=== PATIENT | female | born 1965 | race Caucasian/White ===

== ENCOUNTER 2017-07-01 10:50 | Day surgery (SDC) | payer BC ==
[2017-07-01 11:24] LABS: Bilirubin Negative (Negative); Blood, Urine Negative (Negative); Glucose, Urine (Dipstick) Negative (Negative); Ketone, Urine Negative (Negative); Nitrite Negative (Negative); Protein, Urine (Dipstick) Negative (Neg-Trace); Urobilinogen 0.2 mg/dL (0.2-1.0)
[2017-07-01 11:43] LABS: #Basophils 0.1 thou/uL (0.0-0.2); #Eosinphils 0.2 thou/uL (0.0-0.7); #Monocytes 0.4 thou/uL (0.11-0.59); #Neutrophils 3.9 thou/uL (1.40-6.50); %Eosinophils 3.6 % (0.0-10.0); %Lymphocytes 30.3 % (21.0-51.0); %Monocytes 5.6 % (0.0-10.0); Hematocrit 42.7 % (36.0-47.0); Mean Platelet Volume 9.1 fL (7.4-10.4); Red Blood Cell (RBC) Count 4.45 mill/uL (4.20-5.40); White Blood Cell (WBC) Count 6.5 thou/uL (4.8-10.8)
[2017-07-01 12:10] LABS: ALT (SGPT) 12 U/L (8-55); AST (SGOT) 14 U/L (5-34); Alkaline Phosphatase 83 U/L (40-150); Anion Gap 13 mmol/L (10-20); BUN (Urea Nitrogen) 13 mg/dL (9.8-20.1); Bilirubin, Total 0.3 mg/dL (0.2-1.2); Calc. Creatinine Clearance 0 mL/min (70-130); Calcium 9.5 mg/dL (7.8-10.44); Carbon Dioxide 26 mmol/L (22-29); Chloride 106 mmol/L (98-107); Estimated GFR-MDRD 78; Globulin 3.2 g/dL (2.4-3.5); Lipase 37 U/L (8-78); Protein, Total 7.3 g/dL (6.0-8.3)
[2017-07-01] MEDS ORDERED: Ibuprofen 800 MG TAB ONE (13:04)
[2017-07-01] MEDS ORDERED: traMADol HCl 50 MG TAB ONE (13:04)
--- NOTE | 2017-07-01 13:15 | CT ---
ABDOMEN CT WITHOUT CONTRAST: PELVIS CT WITHOUT CONTRAST: HISTORY: Periumbilical abdominal pain. Possible hernia. Symptoms x3 days. COMPARISON: None. TECHNIQUE: An abdomen and pelvis CT is performed without IV or oral contrast utilizing a renal stone protocol. Coronal reformatted images are submitted for interpretation. FINDINGS: ABDOMEN: Dependent atelectatic changes. Heart size is normal. No significant pericardial fluid. Descending thoracic aorta and abdominal aorta have a normal caliber. No periaortic fat stranding. The gallbladder is surgically absent. Limited evaluation of the solid organs due to lack of IV contrast. Grossly, the liver, spleen, panc reas, and adrenal glands have appropriate attenuation. No gastrohepatic, retrocrural, or periportal lymphadenopathy. No mesenteric mass, lymphadenopathy, free air, or free fluid. There is a ventral abdominal wall her antonieta containing a trace amount of mesenteric fat. Minimal induration of the fat. No bowel herniatio n. Bilaterally, no hydronephrosis or nephrolithiasis. No fat stranding. The bilateral ureters have a normal caliber. No hydroureter, periureteral fat stranding, or ureterolithiasis. Limited evaluation of the alimentary canal due to lack of oral contrast. No evidence of bowel obstr uction. The ileocecal junction is normal. Normal caliber appendix. Scattered fecal material in a nondistended, nondilated colon. Occasional diverticulosis without evidence of diverticulitis. PELVIS: The urinary bladder is unremarkable. No pelvic mass, lymphadenopathy, free air, or free fl uid. Surgically absent uterus. There are no osteoblastic or osteolytic lesions. IMPRESSION: 1. No evidence of nephrolithiasis or obstructive uropathy. 2. Normal caliber appendix. 3. Very small umbilical hernia containing mesenteric fat with minimal induration of the fat. No ev idence of bowel herniation. POS: [facility]
[2017-07-01] MEDS ORDERED: Fentanyl 100 MCG/2 ML VIAL ONE ×3 (15:03→17:05)
[2017-07-01] MEDS ORDERED: Bupivacaine HCl 0.5%/Epinephrine 1:200,000/PF 30 ml Vial ONE (15:12)
[2017-07-01] MEDS ORDERED: Ondansetron HCl/PF 4 MG/2 ML Vial ONE ×3 (15:39→17:05)
[2017-07-01] MEDS ORDERED: Levofloxacin 500 mg/D5W 100 ml Premix Bag ONE (15:42)
[2017-07-01] MEDS ORDERED: Propofol 200 MG/20 ML VIAL ONE (16:04)
[2017-07-01] MEDS ORDERED: Dexamethasone 20 MG/5 ML VIAL ONE (16:04)
[2017-07-01] MEDS ORDERED: Succinylcholine Chloride 20 MG/ML 10 ml SYRINGE FS ONE (16:04)
[2017-07-01] MEDS ORDERED: Lidocaine 1% PF 5 ML VIAL ONE (16:04)
--- NOTE | 2017-07-01 16:13 | HP ---
HISTORY OF PRESENT ILLNESS: Ms. Maegan Garcia is a 51-year-old female who presents with a supraumbili marsha hernia. This is very painful to her. She has been going to physicians, unable to be diagnosed. She presents to the emergency room today with acute pain. She was evaluated by Dr. Do. CAT scan revealed incarcerated fat in a supraumbilical midline ventral hernia. The patient insists on r epair. ALLERGIES: PENICILLIN, IODINE, MORPHINE and SULFA. SOCIAL HISTORY: Tobacco, one-half pack per day. Alcohol, socially. MEDICATIONS: None routinely. PAST SURGICAL HISTORY: Laparoscopic cholecystectomy, total abdominal hysterectomy and bilateral anthony pingo-oophorectomy. 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 REVIEW OF SYSTEMS: Ten-point noncontributory. She had a colonoscopy last year that was normal at [facility]. PHYSICAL EXAMINATION: VITAL SIGNS: Blood pressure 111/62, 79, 98.1 degrees. HEENT: Unremarkable. LUNGS: Clear to auscultation. CARDIAC: Regular rate and rhythm without murmur or gallop. ABDOMEN: Soft, tenderness in her supraumbilical area where there is a palpable mass about a 3 finge rbreadths above the umbilicus. ASSESSMENT AND PLAN: 1. Incarcerated ventral hernia, supraumbilical midline. Recommend open repair using possibly mesh. Risks of infection, bleeding, reoperation, , discussed. She consents. 2. Multiple allergies. She states she rony take Tylenol with codeine without problems. Tramadol c auses hallucinations. She is allergic to MORPHINE. 3. Tobacco abuse.
[2017-07-01] MEDS ORDERED: Promethazine HCl 25 MG/ML VIAL ONE (17:05)
--- NOTE | 2017-07-01 20:23 | OP ---
DATE OF OPERATION: 07/01/2017 PREOPERATIVE DIAGNOSIS: Incarcerated umbilical hernia. POSTOPERATIVE DIAGNOSIS: Incarcerated umbilical hernia with preperitoneal fat. SURGEON: Dr. Charles Chou. ANESTHESIA: General. Local 0.5% Marcaine with epinephrine, 30 mL mixed with 1% Xylocaine, 20 mL PROCEDURE PERFORMED: Umbilical hernia repair with PVP mesh 4 cm. PROCEDURE IN DETAIL: Patient was taken to the operating room where under general anesthesia, suprau mbilical incision made and carried down through the skin and subcutaneous tissue and a small umbilic al hernia defect noted. Just above that there was a smaller ventral hernia. These small bridges of fascia were taken down, this defect sharpened, herniated and incarcerated fat excised with the caut sharron. Hemostasis gained with the cautery. Preperitoneal space potentiated and PVP 4 cm mesh placed in the preperitoneal space and mesh approximated [id number] fashion with interrupted sutures of 0 PDS pop offs incorporating the mesh into the fascial approximation for fascial closure. Mesh was used to reinforce the fascial closure. Local anesthetic infiltrated into skin and subcutaneous tis nilay about the wound for postoperative pain control. Subcutaneous tissues approximated with 3-0 Ocean cryl, skin with subdermal 4-0 Monocryl and DermaGlue applied.
== END 2017-07-01 19:00 | disposition home or self-care (01) ==
LOC: ERS 10:50 → SDC/OP 15:11
PROVIDERS: ATTEND Specialist
PROC: 0WUF0JZ Supplement Abdominal Wall with Synthetic Substitute, Open Approach (ICD-10-PCS; principal; 2017-07-01)
DX: K42.0 Umbilical hernia with obstruction, without gangrene (principal); F17.210 Nicotine dependence, cigarettes, uncomplicated; Z88.0 Allergy status to penicillin; Z88.5 Allergy status to narcotic agent; Z88.2 Allergy status to sulfonamides; Z91.041 Radiographic dye allergy status; Z90.710 Acquired absence of both cervix and uterus; Z90.49 Acquired absence of other specified parts of digestive tract; Z90.722 Acquired absence of ovaries, bilateral
CPT/HCPCS: 36415; 74176; 80053; 81003; 81025; 83690; 85025; 93005; 96374; J0131; J0670; J1100; J1170; J1956; J2001; J2405; J2550; J2704; J3010

== ENCOUNTER 2017-11-10 14:49 | Outpatient (CLI) | payer OTHER | END 2017-11-10 14:50 | disposition home or self-care (01) | LOC: BICMAMMO 14:49 | PROVIDERS: ATTEND Family Medicine | DX: Z12.31 Encounter for screening mammogram for malignant neoplasm of breast (principal) | CPT/HCPCS: 77067 ==

== ENCOUNTER → 2018-03-09 | Day surgery (SDC) | payer OTHER ==
[2018-03-06 08:23] VITALS: BMI 28.1
== END ==
LOC: ENDO/OP 07:34
PROVIDERS: ATTEND Internal Medicine Gastroenterology
DX: K21.9 Gastro-esophageal reflux disease without esophagitis (principal); F17.200 Nicotine dependence, unspecified, uncomplicated; Z88.0 Allergy status to penicillin; Z88.2 Allergy status to sulfonamides; Z91.041 Radiographic dye allergy status; Z79.899 Other long term (current) drug therapy
CPT/HCPCS: 91010

== ENCOUNTER 2018-04-06 10:15 | Outpatient (CLI) | payer OTHER ==
--- NOTE | 2018-04-06 13:40 | RAD ---
ESOPHAGRAM: Date: 04/06/18 HISTORY: Dysphagia. FLUORO TIME: 1.6 minutes. FINDINGS: Air contrast and single column barium evaluation of the esophagus shows diminished primary and second ellen peristalsis. There are prominent tertiary nonpropulsive contractions of the esophagus, most prono unced at the lower one-third. Minimal hiatal hernia. Moderate amount of gastroesophageal reflux. A 12 mm barium tablet traversed the esophagus without holdup. IMPRESSION: 1. Presbyesophagus with prominent tertiary contractions. No evidence of obstruction. 2. Very small hiatal hernia. Moderate gastroesophageal reflux. POS: [facility]
== END 2018-04-06 10:16 | disposition home or self-care (01) ==
LOC: RAD 10:15
PROVIDERS: ATTEND Internal Medicine Gastroenterology
DX: R13.10 Dysphagia, unspecified (principal); K22.8 Other specified diseases of esophagus; K44.9 Diaphragmatic hernia without obstruction or gangrene; K21.9 Gastro-esophageal reflux disease without esophagitis
CPT/HCPCS: 74220

== ENCOUNTER 2019-03-08 09:21 | Observation (INO) | payer OTHER, SELFPAY ==
[2019-03-08 09:49] LABS: #Eosinphils 0.4 thou/uL (0.0-0.7); #Monocytes 0.6 thou/uL (0.11-0.59); #Neutrophils 5.9 thou/uL (1.40-6.50); %Basophils 0.3 % (0.0-1.0); %Eosinophils 3.9 % (0.0-10.0); %Lymphocytes 22.7 % (21.0-51.0); %Monocytes 6.7 % (0.0-10.0); %Neutrophils 66.4 % (42.0-75.0); Hemoglobin 13.8 g/dL (12.0-16.0); Mean Corpuscular HGB CONC 32.5 g/dL (32.0-36.0); Mean Corpuscular Hemoglobin 31.3 pg (27.0-31.0); Mean Corpuscular Volume 96.2 fL (78.0-98.0); Mean Platelet Volume 8.6 fL (7.4-10.4); Platelet Count 200 thou/uL (130-400); RBC Distribution Width 11.7 % (11.5-14.5); White Blood Cell (WBC) Count 8.9 thou/uL (4.8-10.8)
[2019-03-08] MEDS ORDERED: Aspirin Chewable 81 MG TAB ONE (10:50)
[2019-03-08 10:51] LABS: ALT (SGPT) 20 U/L (8-55); AST (SGOT) 19 U/L (5-34); Albumin 4.3 g/dL (3.5-5.0); Alkaline Phosphatase 102 U/L (40-150); Anion Gap 12 mmol/L (10-20); BUN (Urea Nitrogen) 10 mg/dL (9.8-20.1); Bilirubin, Total 0.4 mg/dL (0.2-1.2); CK (CPK) 76 U/L (29-168); Calc. Creatinine Clearance 0 mL/min (70-130); Calcium 9.4 mg/dL (7.8-10.44); Carbon Dioxide 30 mmol/L (22-29); Chloride 104 mmol/L (98-107); Estimated GFR-MDRD 85; Globulin 2.9 g/dL (2.4-3.5); Glucose 89 mg/dL (70-105); Potassium 3.8 mmol/L (3.5-5.1); Protein, Total 7.2 g/dL (6.0-8.3); Sodium 142 mmol/L (136-145)
[2019-03-08] MEDS ORDERED: Nitroglycerin 2% Ointment 1 INCH/1 GM Packet ONE (11:39)
--- NOTE | 2019-03-08 11:43 | RAD ---
PORTABLE CHEST: 03/08/2019 PROVIDED CLINICAL HISTORY: Chest pain. COMPARISON: 08/24/2012 FINDINGS: The cardiac and mediastinal silhouette is within normal limits. The lungs appear clear. No pleural fluid or pneumothorax apparent. IMPRESSION: No evidence for an acute cardiopulmonary process. POS: [facility]
[2019-03-08] MEDS ORDERED: Acetaminophen 325 MG TAB ONE (12:24)
[2019-03-08 13:02] LABS: Troponin I Less than 0.010 ng/mL (< 0.028)
[2019-03-08] MEDS ORDERED: Acetaminophen 325 MG TAB PO PRN (13:21)
[2019-03-08 13:24] VITALS: BMI 28.5
--- NOTE | 2019-03-08 14:01 | RAD ---
CERVICAL SPINE 4 VIEWS: HISTORY: Neck and left arm and shoulder pain FINDINGS: Mild degenerative changes are present. No fracture, subluxation or bony destruction is identified.
[2019-03-08] MEDS: Nitroglycerin 0.4 MG TAB (25 Tab Bottle) PO PRN ×2 (14:33→14:44)
[2019-03-08] MEDS: Nitroglycerin 2% Ointment 1 INCH/1 GM Packet TOP SCH ×2 (16:26→21:07)
--- NOTE | 2019-03-08 18:52 | HP ---
PRIMARY CARE PHYSICIAN: Alvin Willoughby DO CHIEF COMPLAINT: Chest pain. HISTORY OF PRESENT ILLNESS: Ms. Garcia is a very pleasant 53-year-old female who has a history of hypercholesterolemia and gastroesophageal reflux disease. She was in her usual state of health until a couple of days ago when she started having pain on the left side of her shoulder and chest. She says it radiated to her back and initially, it was coming and going, usually lasting only about 5 minutes at a time, but now the pain has gone to be mostly constant. She says it feels like there is a brick sitting on her chest. She notes some shortness of breath with it as well, but no nausea, no vomiting. She did say she broke out into a sweat. She says she was driving when the pain started and was not doing anything very strenuous. She also has had a cough off and on as well. As a result of the pain, she came to the hospital for evaluation. She was given an aspirin and sublingual nitroglycerin and nitroglycerin paste, which is only partially relieved her symptoms. In fact, it really has not helped much. She is being placed in observation for further recommendations. She denies any palpitations. No PND. No orthopnea. She says she does not feel dizzy, but has felt weak and generally tired and says that her eyes have been "glossed over." The patient works with [employer], but says she does not have to do any type of lifting and has denied any heavy lifting recently. REVIEW OF SYSTEMS: CONSTITUTIONAL: There have been no fevers or chills. No night sweats. No weight loss. HEENT: No headache, but she has had some dizziness and visual changes such as her eyes seem glossed over, but she also has had some sore throat and nasal congestion. PULMONARY: No hemoptysis. She has had some cough, but no wheezing. CARDIOVASCULAR: As in the History of Present Illness. GASTROINTESTINAL: She denies any nausea or vomiting. She has had some left-sided abdominal pain. Her last bowel movement was yesterday. She says it was normal. There was no blood in the stool. No hematochezia or melena. GENITOURINARY: No urinary frequency, hematuria, or hesitancy. NEUROLOGIC: No focal weakness or numbness. No seizures. PSYCHIATRIC: She admits to being more depressed lately and feels more under stress. She says because her recently passed in October, and she also has a lot of stress at home. SKIN AND INTEGUMENT: There are no skin changes. No rash. PAST MEDICAL HISTORY: Significant for hypercholesterolemia, gastroesophageal reflux disease, and depression. PAST SURGICAL HISTORY: She has had a cholecystectomy, hysterectomy, bilateral salpingo-oophorectomy, and she has had a ventral hernia repair. ALLERGIES: TO MORPHINE, CODEINE, CONTRAST, SULFA, AND PENICILLIN. SOCIAL HISTORY: She is . She has 2 children. She currently smokes at least 5 to 6 cigarettes a day, and she has been a smoker for about 30 years. She says she does drink an occasional wine cooler. FAMILY HISTORY: Significant for her father had [place] and at age 51. He also had diabetes and had a blood clot in his brain. Brother and mother both had hypertension and diabetes. CURRENT MEDICATIONS: Include: 1. Trazodone 100 mg daily. 2. Lipitor 20 mg daily. 3. Prilosec 20 mg daily. 4. Venlafaxine 150 mg daily. PHYSICAL EXAMINATION: GENERAL: She is alert and oriented. She appears to be in no acute distress. She is well developed and well nourished. VITAL SIGNS: Blood pressure was 136/71, heart rate 76, respiratory rate is 18, and temperature is 98. HEENT: Pupils are equal, round, reactive to light. Extraocular muscles are intact. Her sclerae are anicteric. Tympanic membranes, she did have some mild redness in the left drum. On the right, the drum is pearly de la o, and there is some fluid behind the drum, but no bulging. NECK: There is no adenopathy. No bruits, but she did have some paraspinous tenderness on the left. LUNGS: Clear to auscultation. There is no wheezing. No rales. No rhonchi. CARDIOVASCULAR: She had normal S1 and S2. I did not appreciate S3 or S4. No murmurs, clicks, or rubs. ABDOMEN: Obese. It is soft and nondistended. Positive for bowel sounds. She did have some left upper quadrant tenderness, but there is no rebound, no guarding, and no organomegaly. EXTREMITIES: There is no clubbing or cyanosis. No edema. NEUROLOGIC: Her muscle strength is 5/5 in both upper and lower extremities. SKIN AND INTEGUMENT: There are no skin changes. No rash. LABORATORY RESULTS: Sodium 142, potassium 3.8, chloride is 104, CO2 is 30, BUN of 10, creatinine 0.72, and glucose is 89. D-dimer 0.37. White blood cell count 8.9, hemoglobin 13.8, hematocrit 42.3, and platelet count is 200. On her EKG, sinus rhythm, the rate is 80. There are no ST wave changes. On her chest x-ray, there is no evidence of any cardiomegaly, no infiltrates or effusions. Both EKG and chest x-ray are by my reading. ASSESSMENT AND PLAN: 1. This is a pleasant 53-year-old female who presents to the emergency room complaining of chest pain, which has been fairly constant over the last couple of days. It is a bit atypical and that it is reproducible. However, she does have risk factors for coronary artery disease. Therefore, she will be placed in observation, ruled out, and we will get an exercise Cardiolite as well as lipid panel to help assess her risk for acute coronary syndrome. 2. Dyslipidemia. We will continue Lipitor. 3. Tobacco abuse. We will provide brief counseling on the need of tobacco cessation. 4. Gastroesophageal reflux disease. We will continue her PPI. Job ID: [id number]
[2019-03-08] MEDS ORDERED: Atorvastatin Calcium 20 MG TAB PO SCH (21:00)
[2019-03-08] MEDS ORDERED: traZODone HCl 50 MG TAB PO SCH (21:00)
[2019-03-08] MEDS: traMADol HCl 50 MG TAB PO PRN (21:01)
[2019-03-09] MEDS: Nitroglycerin 2% Ointment 1 INCH/1 GM Packet TOP SCH ×2 (04:57→13:29)
[2019-03-09 05:26] LABS: #Eosinphils 0.4 thou/uL (0.0-0.7); #Lymphocytes 2.2 thou/uL (1.20-3.40); #Monocytes 0.6 thou/uL (0.11-0.59); #Neutrophils 4.4 thou/uL (1.40-6.50); %Basophils 0.4 % (0.0-1.0); %Eosinophils 5.9 % (0.0-10.0); %Lymphocytes 28.7 % (21.0-51.0); %Monocytes 7.6 % (0.0-10.0); %Neutrophils 57.4 % (42.0-75.0); Hemoglobin 11.9 g/dL (12.0-16.0); Mean Corpuscular HGB CONC 31.4 g/dL (32.0-36.0); Mean Corpuscular Hemoglobin 30.7 pg (27.0-31.0); Mean Corpuscular Volume 97.8 fL (78.0-98.0); Mean Platelet Volume 8.8 fL (7.4-10.4); Platelet Count 175 thou/uL (130-400); RBC Distribution Width 11.7 % (11.5-14.5); Red Blood Cell (RBC) Count 3.86 mill/uL (4.20-5.40); White Blood Cell (WBC) Count 7.6 thou/uL (4.8-10.8)
[2019-03-09 05:48] LABS: Anion Gap 10 mmol/L (10-20); BUN (Urea Nitrogen) 13 mg/dL (9.8-20.1); Calc. Creatinine Clearance 113 mL/min (70-130); Calcium 8.6 mg/dL (7.8-10.44); Carbon Dioxide 27 mmol/L (22-29); Cardiac Risk 3.9 (Less than 4.5); Chloride 106 mmol/L (98-107); Cholesterol 155 mg/dl (< 200 Desired); Estimated GFR-MDRD 81; Glucose 133 mg/dL (70-105); HDL Cholesterol 40 mg/dL (>60 Neg Risk); LDL Cholesterol, Calculated 92 mg/dL; Potassium 3.9 mmol/L (3.5-5.1); Sodium 139 mmol/L (136-145); Triglycerides 113 mg/dL (Less than 150)
[2019-03-09] MEDS: traMADol HCl 50 MG TAB PO PRN (08:11)
[2019-03-09] MEDS ORDERED: Venlafaxine HCl XR 150 MG CAP PO SCH (09:00)
[2019-03-09] MEDS ORDERED: Enoxaparin Sodium 40 MG/0.4 ML SYRINGE SC SCH (09:00)
[2019-03-09] MEDS ORDERED: Aspirin 325 mg Enteric Coated Tablet PO SCH (09:00)
--- NOTE | 2019-03-09 13:20 | NM ---
EXAM: CARDIAC SPECT HISTORY: Chest pain, dyslipidemia, smoker TECHNIQUE: A myocardial perfusion scan was performed using the single isotope 1 day protocol with jasper hnetium 99m sestamibi. [10 mCi] was injected intravenously for the rest exam followed by 30 mCi for the stress study. Exercise stress was monitored and interpreted by AMINA Estrada FINDINGS: Homogeneous tracer distribution is seen in the myocardial segments on stress and rest image s without fixed or reversible defects. Gated SPECT LVEF: 54% Wall motion exam: Normal IMPRESSION: Normal myocardial perfusion scan
[2019-03-09] MEDS ORDERED: Ketorolac Tromethamine 30 MG/ML VIAL IVP SCH (13:45)
[2019-03-09] MEDS ORDERED: Sodium Chloride 0.9% 500 ML IV SCH (13:45)
[2019-03-09] MEDS ORDERED: Metoclopramide HCl 10 MG/2 ML VIAL IVP SCH (13:45)
[2019-03-09] MEDS ORDERED: diphenhydrAMINE 50 MG/ML VIAL IVP SCH (13:45)
[2019-03-09 15:48] VITALS: BP 102/55; TEMP 98.1
--- NOTE | 2019-03-09 23:23 | DIS ---
DATE OF ADMISSION: 03/08/2019 DATE OF DISCHARGE: 03/09/2019 PRIMARY CARE PHYSICIAN: Alvin Willoughby, DO PROCEDURES: The patient had a cervical spine x-ray which showed mild degenerative changes. No fracture, subluxation, or bony destruction is identified. Chest x-ray, no acute cardiopulmonary process. The patient had a nuclear stress test, wall motion exam is normal, normal myocardial perfusion scan, EF is 54%. HOSPITAL COURSE: Ms. Garcia is a 53-year-old female with a history of hypercholesteremia and gastro reflux. She was in her usual state of health until a couple days ago when she started having pain to her left side of her chest, reports that it radiated to her back intermittent, reports is a pressure, reports some shortness of breath with it, reports that she initially had it last Friday was driving, when home took a nap, felt better, but it has been intermittent since that time. She denied nausea, vomiting. Did say that she broken into a sweat. She eventually came to the emergency room when the pain did not resolve. She was given an aspirin and sublingual nitroglycerin paste, which only partially relieved her symptoms. She reports that it really did not help that much. She was placed on the observation unit for further management. She denied any palpitations, any orthopnea. Troponins x3 were negative. Stress test was also negative with an EF as stated above. She reports that she feels a little bit better today other than a headache which was relieved with a headache cocktail, some normal saline, Benadryl, Reglan, and a little Toradol. Labs remained unremarkable. The patient reports that she feels a little bit better and was subsequently discharged home. She was instructed to follow up with her primary care doctor, Dr. Willoughby, within 1 week. ALLERGIES: CODEINE, CONTRAST, MORPHINE, PENICILLIN, AND SULFA. HOME MEDICATIONS: Which were restarted; 1. Atorvastatin 20 mg p.o. at bedtime. 2. Prilosec 20 mg p.o. daily. 3. Trazodone 100 mg p.o. at bedtime. 4. Effexor ER 150 mg p.o. daily. DISPO CONDITION: Stable. DISPOSITION: Home. FOLLOWUP INSTRUCTIONS: Follow up with Dr. Willoughby in the next week. Job ID: [id number]
--- NOTE | 2019-03-13 17:04 | EKG ---
Test Reason : Blood Pressure : / mmHG Vent. Rate : 081 BPM Atrial Rate : 081 BPM P-R Int : 142 ms QRS Dur : 080 ms QT Int : 388 ms P-R-T Axes : 071 056 057 degrees QTc Int : 450 ms Normal sinus rhythm Normal ECG Confirmed by LISA STEPHENSON DO ([id number]), editor house organ PABLITO VILLEGAS ([id number]) on 03/13/2019 5:04:34 PM Referred By: Confirmed By:LISA STEPHENSON DO
== END 2019-03-09 17:17 | disposition home or self-care (01) ==
LOC: ERS 09:21 → 2SW 11:37
PROVIDERS: ADMIT Internal Medicine; ATTEND Internal Medicine
DX: R07.89 Other chest pain (principal); M25.512 Pain in left shoulder; R06.02 Shortness of breath; E78.5 Hyperlipidemia, unspecified; E78.00 Pure hypercholesterolemia, unspecified; K21.9 Gastro-esophageal reflux disease without esophagitis; F17.210 Nicotine dependence, cigarettes, uncomplicated; F32.9 Major depressive disorder, single episode, unspecified; Z88.0 Allergy status to penicillin; Z88.2 Allergy status to sulfonamides; Z88.5 Allergy status to narcotic agent; Z91.041 Radiographic dye allergy status
CPT/HCPCS: 36415; 71045; 72040; 78452; 80048; 80053; 80061; 82550; 84484; 85025; 85379; 90471; 90732; 93005; 93017; 94760; 96372; 96374; 96375; A9500; G0009; G0378; J1200; J1650; J1885; J2765

== ENCOUNTER 2019-05-27 13:45 | Outpatient (CLI) | payer OTHER ==
--- NOTE | 2019-05-28 20:57 | ULT ---
LOWER EXTREMITY ARTERIAL EVALUATION 05/27/19 Examination of the lower extremities using Doppler waveforms analysis and segmental limb pressures wa s performed. Examination of the right leg reveals normal ankle-arm index of 1.2 with satisfactory waveforms at all levels. Toe-brachial index is normal. On the left lower extremity, ankle-arm index is normal at 1.08 with relatively well preserved signals at all levels except for the common femoral artery. Toe-brachial index is normal. This study would be considered a normal resting arterial study of the lower extremities and would not be consistent with any significant claudication.
== END 2019-05-27 13:46 | disposition home or self-care (01) ==
LOC: ULT 13:45
PROVIDERS: ATTEND Family Medicine
DX: I83.93 Asymptomatic varicose veins of bilateral lower extremities (principal); R09.89 Other specified symptoms and signs involving the circulatory and respiratory systems
CPT/HCPCS: 93922

== ENCOUNTER 2019-05-27 14:56 | Outpatient (CLI) | payer OTHER ==
--- NOTE | 2019-05-27 15:48 | MMO ---
Bilateral MAMMO Bilat Screen [facility]. CLINICAL HISTORY: Patient is 53 years old and is seen for screening. The patient has no family history of breast cancer. The patient has no personal history of cancer. VIEWS: The views performed were: bilateral craniocaudal with tomosynthesis and bilateral mediolateral oblique with tomosynthesis. FILMS COMPARED: The present examination has been compared to prior imaging studies performed at [facility] on 11/10/2017, and at [facility] on 05/16/2014. MAMMOGRAM FINDINGS: There are scattered fibroglandular densities. There are benign appearing calcifications seen in both breasts. There are no suspicious masses, suspicious calcifications, or new areas of architectural distortion. IMPRESSION: THERE IS NO MAMMOGRAPHIC EVIDENCE OF MALIGNANCY. A ROUTINE FOLLOW-UP MAMMOGRAM IN 1 YEAR IS RECOMMENDED. THE RESULTS OF THIS EXAM WERE SENT TO THE PATIENT. ACR BI-RADS Category 2 - Benign finding MAMMOGRAPHY NOTE: 1. A negative mammogram report should not delay a biopsy if a dominant of clinically suspicious mass is present. 2. Approximately 10% to 15% of breast cancers are not detected by mammography. 3. Adenosis and dense breasts may obscure an underlying neoplasm. Reported by: ULISES COYNE MD Electonically Signed: [id number]
== END 2019-05-27 14:57 | disposition home or self-care (01) ==
LOC: BICMAMMO 14:56
PROVIDERS: ATTEND Family Medicine
DX: Z12.31 Encounter for screening mammogram for malignant neoplasm of breast (principal)
CPT/HCPCS: 77063; 77067

== ENCOUNTER 2020-01-15 20:19 | Emergency (ER) | payer OTHER, SELFPAY ==
[2020-01-15] MEDS ORDERED: Ketorolac Tromethamine 30 MG/ML VIAL ONE (20:37)
== END 2020-01-15 21:00 | disposition home or self-care (01) ==
LOC: ERS 20:19
DX: S16.1XXA Strain of muscle, fascia and tendon at neck level, initial encounter (principal); S20.211A Contusion of right front wall of thorax, initial encounter; K21.9 Gastro-esophageal reflux disease without esophagitis; E78.5 Hyperlipidemia, unspecified; E78.00 Pure hypercholesterolemia, unspecified; F41.9 Anxiety disorder, unspecified; F32.9 Major depressive disorder, single episode, unspecified; F17.210 Nicotine dependence, cigarettes, uncomplicated; Z79.899 Other long term (current) drug therapy; V89.2XXA Person injured in unspecified motor-vehicle accident, traffic, initial encounter
CPT/HCPCS: 96372; 99283; J1885

== ENCOUNTER 2020-11-29 14:31 | Outpatient (CLI) | payer OTHER | END 2020-11-29 14:32 | disposition home or self-care (01) | LOC: BICMAMMO 14:31 | PROVIDERS: ATTEND Family Medicine | DX: Z12.31 Encounter for screening mammogram for malignant neoplasm of breast (principal) | CPT/HCPCS: 77063; 77067 ==

== ENCOUNTER 2021-02-26 11:35 | Emergency (ER) | payer OTHER ==
[~2021-02-26 11:35] MED LIST: Iopamidol-370 76% 500 ML 1 ML ONE
[2021-02-26 12:24] LABS: #Basophils 0.1 thou/uL (0.0-0.2); #Eosinphils 0.3 thou/uL (0.0-0.7); #Lymphocytes 2.3 thou/uL (1.20-3.40); #Monocytes 0.5 thou/uL (0.11-0.59); #Neutrophils 5.5 thou/uL (1.40-6.50); %Basophils 0.6 % (0.0-1.0); %Eosinophils 2.9 % (0.0-10.0); %Lymphocytes 26.9 % (21.0-51.0); %Monocytes 5.8 % (0.0-10.0); %Neutrophils 63.7 % (42.0-75.0); Hemoglobin 13.8 g/dL (12.0-16.0); Mean Corpuscular HGB CONC 32.7 g/dL (32.0-36.0); Mean Corpuscular Hemoglobin 31.1 pg (27.0-31.0); Mean Corpuscular Volume 95.2 fL (78.0-98.0); Mean Platelet Volume 8.6 fL (7.4-10.4); Platelet Count 196 thou/uL (130-400); RBC Distribution Width 12.4 % (11.5-14.5); Red Blood Cell (RBC) Count 4.42 mill/uL (4.20-5.40); White Blood Cell (WBC) Count 8.6 thou/uL (4.8-10.8)
[2021-02-26 12:41] LABS: ALT (SGPT) 12 U/L (8-55); AST (SGOT) 11 U/L (5-34); Albumin 3.8 g/dL (3.5-5.0); Alkaline Phosphatase 95 U/L (40-110); Anion Gap 11 mmol/L (10-20); BUN (Urea Nitrogen) 10 mg/dL (9.8-20.1); Bilirubin, Total 0.4 mg/dL (0.2-1.2); Calc. Creatinine Clearance 0 mL/min (70-130); Calcium 9.3 mg/dL (7.8-10.44); Carbon Dioxide 27 mmol/L (22-29); Chloride 106 mmol/L (98-107); Globulin 2.5 g/dL (2.4-3.5); Glucose 91 mg/dL (70-105); Lipase 46 U/L (8-78); Potassium 4.2 mmol/L (3.5-5.1); Protein, Total 6.3 g/dL (6.0-8.3); Sodium 140 mmol/L (136-145)
[2021-02-26] MEDS ORDERED: diphenhydrAMINE 50 MG/ML VIAL ONE (13:11)
[2021-02-26] MEDS ORDERED: Ketorolac Tromethamine 30 MG/ML VIAL ONE (13:11)
[2021-02-26] MEDS ORDERED: methylPREDNISolone Sod Succ/PF 125 MG/2 ML VIAL ONE (13:11)
[2021-02-26] MEDS ORDERED: Famotidine/PF 20 mg/2ml Vial ONE (13:11)
[2021-02-26 15:33] LABS: Troponin I Less than 0.010 ng/mL (< 0.028)
[2021-02-26 15:54] LABS: SARS-CoV-2 NAA Rapid Test Not Detected (NotDetected)
== END 2021-02-26 16:30 | disposition home or self-care (01) ==
LOC: ERS 11:35
DX: R07.89 Other chest pain (principal); Z20.822 Contact with and (suspected) exposure to COVID-19; Z79.899 Other long term (current) drug therapy; K21.9 Gastro-esophageal reflux disease without esophagitis; E78.5 Hyperlipidemia, unspecified; E78.00 Pure hypercholesterolemia, unspecified; F17.210 Nicotine dependence, cigarettes, uncomplicated
CPT/HCPCS: 36415; 71045; 71275; 80053; 83690; 84484; 85025; 85379; 93005; 94760; 96374; 96375; J1200; J1885; J2930; Q9967; S0028; U0002; U0005

== ENCOUNTER 2021-10-02 22:01 | Emergency (ER) | payer BC, OTHER ==
[2021-10-03] MEDS ORDERED: Dexamethasone 4 MG TAB ONE ×2 (00:17)
[2021-10-03] MEDS ORDERED: Acetaminophen 500 MG TAB ONE (00:17)
[2021-10-03] MEDS ORDERED: Albuterol 200 PUFF (6.7GM INHALER) ONE (01:27)
[2021-10-03 03:30] LABS: #Eosinphils 0.1 thou/uL (0.0-0.7); #Lymphocytes 0.6 thou/uL (1.20-3.40); #Monocytes 0.3 thou/uL (0.11-0.59); %Basophils 0.1 % (0.0-1.0); %Lymphocytes 7.8 % (21.0-51.0); %Monocytes 3.3 % (0.0-10.0); %Neutrophils 87.9 % (42.0-75.0); Hemoglobin 13.2 g/dL (12.0-16.0); Mean Corpuscular Hemoglobin 32.3 pg (27.0-31.0); Mean Platelet Volume 7.5 fL (7.4-10.4); Platelet Count 195 thou/uL (130-400); RBC Distribution Width 11.6 % (11.5-14.5)
[2021-10-03 17:03] LABS: SARS-CoV-2 PCR by NAA DETECTED (NotDetected)
== END 2021-10-03 04:06 | disposition home or self-care (01) ==
LOC: ERS 22:01
DX: U07.1 COVID-19 (principal); K21.9 Gastro-esophageal reflux disease without esophagitis; E78.00 Pure hypercholesterolemia, unspecified; E78.5 Hyperlipidemia, unspecified; F17.210 Nicotine dependence, cigarettes, uncomplicated; Z79.899 Other long term (current) drug therapy
CPT/HCPCS: 36415; 71045; 84484; 85025; 93005; J8540; U0003; U0005

== ENCOUNTER 2021-10-22 11:27 | Emergency (ER) | payer BC ==
[2021-10-22 12:51] LABS: #Basophils 0.1 thou/uL (0.0-0.2); #Eosinphils 0.1 thou/uL (0.0-0.7); #Lymphocytes 0.3 thou/uL (1.20-3.40); #Monocytes 0.5 thou/uL (0.11-0.59); #Neutrophils 6.4 thou/uL (1.40-6.50); %Basophils 1.2 % (0.0-1.0); %Eosinophils 1.3 % (0.0-10.0); %Lymphocytes 3.4 % (21.0-51.0); %Monocytes 6.9 % (0.0-10.0); %Neutrophils 87.2 % (42.0-75.0); Hemoglobin 13.7 g/dL (12.0-16.0); Mean Corpuscular HGB CONC 32.9 g/dL (32.0-36.0); Mean Corpuscular Hemoglobin 31.2 pg (27.0-31.0); Mean Corpuscular Volume 94.7 fL (78.0-98.0); Mean Platelet Volume 7.8 fL (7.4-10.4); Platelet Count 211 thou/uL (130-400); White Blood Cell (WBC) Count 7.3 thou/uL (4.8-10.8)
[2021-10-22 13:16] LABS: ALT (SGPT) 28 U/L (8-55); AST (SGOT) 27 U/L (5-34); Albumin 4.1 g/dL (3.5-5.0); Alkaline Phosphatase 105 U/L (40-110); Anion Gap 16 mmol/L (10-20); BUN (Urea Nitrogen) 14 mg/dL (9.8-20.1); Bilirubin, Total 0.4 mg/dL (0.2-1.2); Calc. Creatinine Clearance 0 mL/min (70-130); Calcium 8.6 mg/dL (7.8-10.44); Carbon Dioxide 22 mmol/L (22-29); Chloride 105 mmol/L (98-107); Globulin 3.3 g/dL (2.4-3.5); Glucose 121 mg/dL (70-105); Lipase 67 U/L (8-78); Potassium 3.7 mmol/L (3.5-5.1); Protein, Total 7.4 g/dL (6.0-8.3); Sodium 139 mmol/L (136-145)
[2021-10-22] MEDS ORDERED: diphenhydrAMINE 25 MG CAP ONE (13:52)
[2021-10-22] MEDS ORDERED: Ondansetron PF 4 MG/2 ML Vial ONE (13:52)
[2021-10-22] MEDS ORDERED: methylPREDNISolone Sod Succ/PF 125 MG/2 ML VIAL ONE (13:52)
[2021-10-22] MEDS ORDERED: Famotidine/PF 20 mg/2ml Vial ONE (13:52)
[2021-10-22] MEDS ORDERED: diphenhydrAMINE 50 MG/ML VIAL ONE (13:53)
[2021-10-22] MEDS ORDERED: Morphine 4 MG/ML VIAL ONE (14:18)
[2021-10-22 14:27] LABS: CRP (Inflammatory) 2.35 mg/dL (= or < 0.5)
== END 2021-10-22 17:50 | disposition home or self-care (01) ==
LOC: ERS 11:27
DX: K59.00 Constipation, unspecified (principal); K21.9 Gastro-esophageal reflux disease without esophagitis; F17.210 Nicotine dependence, cigarettes, uncomplicated; E78.5 Hyperlipidemia, unspecified
CPT/HCPCS: 36415; 71045; 74177; 80053; 82550; 83605; 83690; 84484; 85025; 86140; 93005; 94760; 96374; 96375; J1200; J2270; J2405; J2930; S0028

== ENCOUNTER 2021-10-23 08:12 | Emergency (ER) | payer BC ==
[2021-10-23 09:28] LABS: #Lymphocytes 0.8 thou/uL (1.20-3.40); #Monocytes 0.8 thou/uL (0.11-0.59); %Eosinophils 0.1 % (0.0-10.0); %Lymphocytes 7.7 % (21.0-51.0); %Monocytes 7.7 % (0.0-10.0); %Neutrophils 84.5 % (42.0-75.0); Hemoglobin 12.9 g/dL (12.0-16.0); Mean Corpuscular HGB CONC 31.5 g/dL (32.0-36.0); Mean Corpuscular Hemoglobin 30.3 pg (27.0-31.0); Mean Corpuscular Volume 96.2 fL (78.0-98.0); Mean Platelet Volume 7.8 fL (7.4-10.4); Platelet Count 229 thou/uL (130-400); RBC Distribution Width 12.1 % (11.5-14.5); Red Blood Cell (RBC) Count 4.27 mill/uL (4.20-5.40); White Blood Cell (WBC) Count 10.6 thou/uL (4.8-10.8)
[2021-10-23 09:48] LABS: ALT (SGPT) 39 U/L (8-55); AST (SGOT) 29 U/L (5-34); Albumin 3.9 g/dL (3.5-5.0); Alkaline Phosphatase 92 U/L (40-110); Anion Gap 11 mmol/L (10-20); BUN (Urea Nitrogen) 14 mg/dL (9.8-20.1); Bilirubin, Total 0.3 mg/dL (0.2-1.2); Calc. Creatinine Clearance 0 mL/min (70-130); Calcium 8.3 mg/dL (7.8-10.44); Carbon Dioxide 26 mmol/L (22-29); Chloride 108 mmol/L (98-107); Globulin 3.3 g/dL (2.4-3.5); Glucose 109 mg/dL (70-105); Lipase 57 U/L (8-78); Potassium 3.2 mmol/L (3.5-5.1); Protein, Total 7.2 g/dL (6.0-8.3); Sodium 142 mmol/L (136-145)
[2021-10-23] MEDS ORDERED: Potassium Chloride 20 MEQ/100 ML PREMIX BAG ONE (11:07)
[2021-10-23] MEDS ORDERED: Ketorolac Tromethamine 30 MG/ML VIAL ONE (11:07)
[2021-10-23] MEDS ORDERED: Ondansetron PF 4 MG/2 ML Vial ONE (11:07)
[2021-10-23] MEDS ORDERED: Morphine 4 MG/ML VIAL ONE (11:33)
[2021-10-23 11:41] LABS: Bacteria/HPF None Seen HPF (None Seen); Bilirubin Negative (Negative); Blood, Urine Negative (Negative); Clarity Clear (Clear); Glucose, Urine (Dipstick) Normal (Negative); Ketone, Urine Negative (Negative); Leukocyte Negative Leu/uL (Negative); Nitrite Negative (Negative); Protein, Urine (Dipstick) 50 mg/dL (Neg-Trace); RBC/HPF 0-3 HPF (0-3); Specific Gravity, Urine 1.041 (1.002-1.036); WBC/HPF 0-3 HPF (0-3)
[2021-10-23] MEDS ORDERED: HYDROcodone/Acetaminophen 5/325 mg Tablet ONE (14:00)
[2021-10-23] MEDS ORDERED: Acetaminophen 500 MG TAB ONE (14:03)
== END 2021-10-23 17:05 | disposition home or self-care (01) ==
LOC: ERS 08:12
DX: R11.2 Nausea with vomiting, unspecified (principal); R19.7 Diarrhea, unspecified; K21.9 Gastro-esophageal reflux disease without esophagitis; E78.5 Hyperlipidemia, unspecified; E78.00 Pure hypercholesterolemia, unspecified; G47.00 Insomnia, unspecified; Z87.891 Personal history of nicotine dependence; Z79.899 Other long term (current) drug therapy
CPT/HCPCS: 36415; 71045; 80053; 81003; 81015; 83690; 85025; 96365; 96366; 96372; 96375; J0500; J1885; J2270; J2405; J3480

== ENCOUNTER 2022-05-20 08:58 | Inpatient (IN) | payer BC ==
[2022-05-20 09:37] LABS: #Eosinphils 0.1 thou/uL (0.0-0.7); #Lymphocytes 1.8 thou/uL (1.20-3.40); #Monocytes 0.3 thou/uL (0.11-0.59); #Neutrophils 5.2 thou/uL (1.40-6.50); %Basophils 0.1 % (0.0-1.0); %Eosinophils 1.3 % (0.0-10.0); %Lymphocytes 24.4 % (21.0-51.0); %Monocytes 4.4 % (0.0-10.0); %Neutrophils 69.8 % (42.0-75.0); Hemoglobin 13.7 g/dL (12.0-16.0); Mean Corpuscular HGB CONC 32.5 g/dL (32.0-36.0); Mean Corpuscular Hemoglobin 30.8 pg (27.0-31.0); Mean Corpuscular Volume 94.6 fL (78.0-98.0); Mean Platelet Volume 8.7 fL (7.4-10.4); Platelet Count 227 thou/uL (130-400); RBC Distribution Width 11.7 % (11.5-14.5); Red Blood Cell (RBC) Count 4.46 mill/uL (4.20-5.40); White Blood Cell (WBC) Count 7.5 thou/uL (4.8-10.8)
[2022-05-20] MEDS ORDERED: Aspirin Chewable 81 MG TAB ONE (09:44)
[2022-05-20] MEDS ORDERED: Nitroglycerin 2% Ointment 1 INCH/1 GM Packet ONE (09:44)
[2022-05-20 09:53] LABS: ALT (SGPT) 14 U/L (8-55); AST (SGOT) 16 U/L (5-34); Alkaline Phosphatase 98 U/L (40-110); Anion Gap 18 mmol/L (10-20); BUN (Urea Nitrogen) 9 mg/dL (9.8-20.1); Bilirubin, Total 0.6 mg/dL (0.2-1.2); CK (CPK) 67 U/L (29-168); Calc. Creatinine Clearance 0 mL/min (70-130); Calcium 8.6 mg/dL (7.8-10.44); Carbon Dioxide 23 mmol/L (22-29); Chloride 105 mmol/L (98-107); Estimated GFR 92; Globulin 2.7 g/dL (2.4-3.5); Glucose 136 mg/dL (70-105); Lipase 23 U/L (8-78); Potassium 4.4 mmol/L (3.5-5.1); Protein, Total 6.7 g/dL (6.0-8.3); Sodium 142 mmol/L (136-145)
[2022-05-20] MEDS ORDERED: Acetaminophen 650 MG Suppository PR PRN (11:39)
[2022-05-20] MEDS ORDERED: Ondansetron PF 4 MG/2 ML Vial IVP PRN (11:39)
[2022-05-20] MEDS ORDERED: Ondansetron ODT 4 MG TAB PO PRN (11:39)
[2022-05-20] MEDS ORDERED: Nitroglycerin 0.4 MG TAB (25 Tab Bottle) SL PRN (11:40)
[2022-05-20] MEDS ORDERED: Ibuprofen 600 MG TAB PO SCH (11:42)
[2022-05-20 12:05] VITALS: BMI 33.5
[2022-05-20 12:34] LABS: Hemoglobin A1c 5.8 % (4.0-6.0)
[2022-05-20 12:41] LABS: Troponin I Less than 0.010 ng/mL (< 0.028)
[2022-05-20] MEDS: Acetaminophen 325 MG TAB PO PRN (14:16)
[2022-05-20 16:08] LABS: Troponin I Less than 0.010 ng/mL (< 0.028)
[2022-05-20] MEDS ORDERED: traMADol HCl 50 MG TAB PO PRN (16:19)
[2022-05-20] MEDS ORDERED: Melatonin 3 MG TAB PO PRN (16:20)
[2022-05-20] MEDS ORDERED: HYDROcodone/Acetaminophen 5/325 mg Tablet PO PRN (20:37)
[2022-05-21] MEDS ORDERED: HYDROcodone/Acetaminophen 5/325 mg Tablet PO PRN (02:03)
[2022-05-21 04:43] LABS: #Eosinphils 0.2 thou/uL (0.0-0.7); #Monocytes 0.5 thou/uL (0.11-0.59); #Neutrophils 4.1 thou/uL (1.40-6.50); %Basophils 0.2 % (0.0-1.0); %Eosinophils 2.9 % (0.0-10.0); %Lymphocytes 29.7 % (21.0-51.0); %Monocytes 6.8 % (0.0-10.0); %Neutrophils 60.5 % (42.0-75.0); Hemoglobin 12.7 g/dL (12.0-16.0); Mean Corpuscular HGB CONC 32.1 g/dL (32.0-36.0); Mean Corpuscular Hemoglobin 30.7 pg (27.0-31.0); Mean Corpuscular Volume 95.7 fL (78.0-98.0); Mean Platelet Volume 8.2 fL (7.4-10.4); Platelet Count 181 thou/uL (130-400); RBC Distribution Width 11.8 % (11.5-14.5); Red Blood Cell (RBC) Count 4.14 mill/uL (4.20-5.40); White Blood Cell (WBC) Count 6.8 thou/uL (4.8-10.8)
[2022-05-21 05:11] LABS: Anion Gap 12 mmol/L (10-20); BUN (Urea Nitrogen) 11 mg/dL (9.8-20.1); Calc. Creatinine Clearance 116 mL/min (70-130); Calcium 8.7 mg/dL (7.8-10.44); Carbon Dioxide 26 mmol/L (22-29); Cardiac Risk 3.6 (Less than 4.5); Chloride 107 mmol/L (98-107); Cholesterol 135 mg/dl (< 200 Desired); Estimated GFR 83; Glucose 104 mg/dL (70-105); HDL Cholesterol 37 mg/dL (>60 Neg Risk); LDL Cholesterol, Calculated 79 mg/dL; Potassium 4.2 mmol/L (3.5-5.1); Sodium 141 mmol/L (136-145); Triglycerides 94 mg/dL (Less than 150)
[2022-05-21] MEDS: Aspirin Chewable 81 MG TAB PO SCH (07:56)
[2022-05-21] MEDS ORDERED: ADENOSINE 60 MG/20 ML VIAL ONE (08:53)
[2022-05-21] MEDS: Diclofenac 1% 100 GM GEL TP SCH ×2 (17:30→20:46)
[2022-05-21] MEDS: Acetaminophen 325 MG TAB PO PRN (17:31)
[2022-05-21] MEDS ORDERED: Famotidine 20 MG TAB PO SCH ×2 (18:16→21:00)
[2022-05-21] MEDS ORDERED: Communication Order-Pharmacy FS SCH (18:30)
[2022-05-21] MEDS: predniSONE 20 MG TAB PO SCH ×2 (18:53→22:51)
[2022-05-21] MEDS ORDERED: traZODone HCl 50 MG TAB PO SCH (21:00)
[2022-05-21] MEDS ORDERED: Atorvastatin Calcium 40 MG TAB PO SCH ×2 (21:00)
[2022-05-21] MEDS ORDERED: Gabapentin 300 MG CAP PO SCH (21:00)
[2022-05-21] MEDS ORDERED: predniSONE 20 MG TAB PO SCH (23:55)
[2022-05-22 04:56] LABS: #Lymphocytes 0.7 thou/uL (1.20-3.40); #Monocytes 0.1 thou/uL (0.11-0.59); #Neutrophils 5.4 thou/uL (1.40-6.50); %Basophils 0.3 % (0.0-1.0); %Eosinophils 0.3 % (0.0-10.0); %Lymphocytes 11.8 % (21.0-51.0); %Monocytes 0.9 % (0.0-10.0); %Neutrophils 86.7 % (42.0-75.0); Hemoglobin 14.3 g/dL (12.0-16.0); Mean Corpuscular HGB CONC 33.7 g/dL (32.0-36.0); Mean Corpuscular Hemoglobin 31.9 pg (27.0-31.0); Mean Corpuscular Volume 94.7 fL (78.0-98.0); Mean Platelet Volume 8.5 fL (7.4-10.4); Platelet Count 219 thou/uL (130-400); RBC Distribution Width 11.6 % (11.5-14.5); Red Blood Cell (RBC) Count 4.47 mill/uL (4.20-5.40); White Blood Cell (WBC) Count 6.2 thou/uL (4.8-10.8)
[2022-05-22] MEDS: predniSONE 20 MG TAB PO SCH (05:20)
[2022-05-22] MEDS: Aspirin Chewable 81 MG TAB PO SCH (05:20)
[2022-05-22 05:23] LABS: Anion Gap 14 mmol/L (10-20); BUN (Urea Nitrogen) 11 mg/dL (9.8-20.1); Calc. Creatinine Clearance 127 mL/min (70-130); Calcium 9.4 mg/dL (7.8-10.44); Carbon Dioxide 25 mmol/L (22-29); Chloride 106 mmol/L (98-107); Estimated GFR 92; Glucose 160 mg/dL (70-105); Potassium 4.3 mmol/L (3.5-5.1); Sodium 141 mmol/L (136-145)
[2022-05-22] MEDS ORDERED: predniSONE 20 MG TAB PO SCH (06:00)
[2022-05-22] MEDS ORDERED: Sodium Chloride 0.9% 1,000 ML IV SCH ×2 (06:00→13:30)
[2022-05-22] MEDS: Diclofenac 1% 100 GM GEL TP SCH ×3 (07:55→14:21)
[2022-05-22] MEDS ORDERED: DULoxetine 60 MG CAP PO SCH (09:00)
[2022-05-22] MEDS ORDERED: Ascorbic Acid 500 mg Chewable Tablet PO SCH (09:00)
[2022-05-22] MEDS ORDERED: Heparin 10,000 UNITS/ 10 ML VIAL ONE (11:30)
[2022-05-22] MEDS ORDERED: Nitroglycerin 100MG/250ML BOT 250 ML ONE (11:30)
[2022-05-22] MEDS ORDERED: Verapamil 5 MG/2 ML VIAL ONE (12:14)
[2022-05-22] MEDS ORDERED: Fentanyl 100 MCG/2 ML VIAL ONE (12:50)
[2022-05-22] MEDS ORDERED: Midazolam HCl 2 mg/2 ml Vial ONE (12:50)
[2022-05-22] MEDS ORDERED: Nitroglycerin 0.4 MG TAB (25 Tab Bottle) SL PRN (13:30)
[2022-05-22] MEDS ORDERED: Sodium Chloride 0.9% 200 ML IV PRN (13:30)
[2022-05-22] MEDS: Acetaminophen 325 MG TAB PO PRN (14:22)
[2022-05-22 16:00] VITALS: BP 138/76; TEMP 97.9
== END 2022-05-22 18:07 | disposition home or self-care (01) | DRG 287 ==
LOC: ERS 08:58 → 2SW 11:33 → OBSVTOIN 05-22 11:42
PROVIDERS: ADMIT Internal Medicine; ATTEND Internal Medicine
PROC: 4A023N7 Measurement of Cardiac Sampling and Pressure, Left Heart, Percutaneous Approach (ICD-10-PCS; principal; 2022-05-22)
PROC: B2111ZZ Fluoroscopy of Multiple Coronary Arteries using Low Osmolar Contrast (ICD-10-PCS; 2022-05-22)
PROC: B2151ZZ Fluoroscopy of Left Heart using Low Osmolar Contrast (ICD-10-PCS; 2022-05-22)
DX: I25.10 Atherosclerotic heart disease of native coronary artery without angina pectoris (principal); I10 Essential (primary) hypertension; E78.5 Hyperlipidemia, unspecified; K21.9 Gastro-esophageal reflux disease without esophagitis; E78.00 Pure hypercholesterolemia, unspecified; F41.9 Anxiety disorder, unspecified; F32.A Depression, unspecified; Z20.822 Contact with and (suspected) exposure to COVID-19; Z87.891 Personal history of nicotine dependence; Z79.899 Other long term (current) drug therapy; Z90.710 Acquired absence of both cervix and uterus; Z90.49 Acquired absence of other specified parts of digestive tract; Z88.5 Allergy status to narcotic agent; Z88.2 Allergy status to sulfonamides; Z88.0 Allergy status to penicillin; Z88.8 Allergy status to other drugs, medicaments and biological substances
CPT/HCPCS: 36415; 71045; 78452; 80048; 80053; 80061; 82550; 83036; 83690; 84484; 85025; 93005; 93017; 93458; 94760; 99152; A9500; C1769; C1894; G0378; J0153; J1644; J2250; J3010; J7050; J7512; U0003; U0005

== ENCOUNTER 2023-08-22 16:11 | Inpatient (IN) | payer BC ==
[~2023-08-22 16:11] MED LIST changes: -Iopamidol-370 76% 500 ML 1 ML ONE; +Iopamidol-370 76% 500 ML MDV (1 ML CHARGE) ONE
[2023-08-22 16:39] LABS: #Eosinphils 0.2 thou/uL (0.0-0.7); #Monocytes 0.5 thou/uL (0.11-0.59); #Neutrophils 13.6 thou/uL (1.40-6.50); %Basophils 0.1 % (0.0-1.0); %Eosinophils 1.3 % (0.0-10.0); %Lymphocytes 4.5 % (21.0-51.0); %Monocytes 3.3 % (0.0-10.0); %Neutrophils 90.5 % (42.0-75.0); Hematocrit 46.3 % (36.0-47.0); Hemoglobin 15.1 g/dL (12.0-16.0); Mean Corpuscular HGB CONC 32.6 g/dL (32.0-36.0); Mean Corpuscular Hemoglobin 30.1 pg (27.0-31.0); Mean Corpuscular Volume 92.4 fl (78.0-98.0); Mean Platelet Volume 10.2 fL (7.4-10.4); Platelet Count 232 10x3/uL (130-400); RBC Distribution Width 12.6 % (11.5-14.5); Red Blood Cell (RBC) Count 5.01 mill/uL (4.20-5.40)
[2023-08-22 17:06] LABS: ALT (SGPT) 21 U/L (8-55); AST (SGOT) 19 U/L (5-34); Albumin 4.5 g/dL (3.5-5.0); Alkaline Phosphatase 114 U/L (40-110); Anion Gap 16 mmol/L (10-20); BUN (Urea Nitrogen) 15 mg/dL (9.8-20.1); Bilirubin, Total 0.8 mg/dL (0.2-1.2); Calc. Creatinine Clearance 0 mL/min (70-130); Calcium 9.6 mg/dL (7.8-10.44); Carbon Dioxide 27 mmol/L (22-29); Chloride 101 mmol/L (98-107); Estimated GFR 80; Globulin 3.3 g/dL (2.4-3.5); Glucose 132 mg/dL (70-105); Potassium 3.8 mmol/L (3.5-5.1); Protein, Total 7.8 g/dL (6.0-8.3); Sodium 140 mmol/L (136-145)
[2023-08-22 17:11] LABS: Troponin I Less than 0.010 ng/mL (< 0.028)
[2023-08-22 17:19] LABS: PTT 24.3 sec (22.9-36.1); Prothrombin Time 13.3 sec (12.0-14.7)
[2023-08-22] MEDS ORDERED: diphenhydrAMINE 50 MG/ML VIAL ONE (17:21)
[2023-08-22] MEDS ORDERED: methylPREDNISolone Sod Succ/PF 125 MG/2 ML VIAL ONE (17:22)
[2023-08-22] MEDS ORDERED: fentaNYL 50 mcg/mL 1 mL Vial ONE ×2 (17:22→20:25)
[2023-08-22] MEDS ORDERED: Famotidine/PF 20 mg/2ml Vial ONE (17:22)
[2023-08-22 19:19] LABS: Bilirubin Negative (Negative); Blood, Urine Negative (Negative); CAUTI Indications for Culture Pelvic or flank pain; Clarity Clear (Clear); Glucose, Urine (Dipstick) Normal (Negative); Ketone, Urine Negative (Negative); Leukocyte Negative Leu/uL (Negative); Nitrite Negative (Negative); Protein, Urine (Dipstick) Negative (Neg-Trace); RBC/HPF 0-3 HPF (0-3); Specific Gravity, Urine 1.022 (1.002-1.036); Squamous Epithelial 0-3 HPF (0-3); Urobilinogen Normal mg/dL (Less than 2); WBC/HPF 0-3 HPF (0-3); pH, Urine 6.5 (5.0-9.0)
[2023-08-22 19:21] LABS: Bacteria/HPF Rare-Few HPF (None Seen)
[2023-08-22 19:22] LABS: Urine Culture Reflex No No
[2023-08-22] MEDS ORDERED: Sodium Chloride 0.9% 1,000 ML IV SCH (22:30)
[2023-08-22] MEDS ORDERED: Ondansetron ODT 4 MG TAB PO PRN (22:35)
[2023-08-22] MEDS ORDERED: Acetaminophen 325 MG TAB PO PRN (22:35)
[2023-08-22] MEDS ORDERED: Senokot S 8.6-50 MG TAB PO PRN (22:35)
[2023-08-22 22:45] VITALS: BMI 34.7
[2023-08-22] MEDS ORDERED: Aspirin Chewable 81 MG TAB PO SCH (22:45)
[2023-08-22] MEDS ORDERED: Gabapentin 300 MG CAP PO SCH (23:00)
[2023-08-22] MEDS: Ketorolac Tromethamine 30 MG/ML VIAL IVP PRN (23:04)
[2023-08-22] MEDS: traZODone HCl 50 MG TAB PO PRN (23:04)
[2023-08-23 00:51] LABS: Hemoglobin A1c 6.5 % (4.0-6.0)
[2023-08-23 01:07] LABS: Troponin I Less than 0.010 ng/mL (< 0.028)
[2023-08-23 04:18] LABS: #Monocytes 0.1 thou/uL (0.11-0.59); #Neutrophils 8.7 thou/uL (1.40-6.50); %Basophils 0.1 % (0.0-1.0); %Lymphocytes 3.9 % (21.0-51.0); %Monocytes 0.9 % (0.0-10.0); %Neutrophils 94.8 % (42.0-75.0); Hemoglobin 13.2 g/dL (12.0-16.0); Mean Corpuscular HGB CONC 32.2 g/dL (32.0-36.0); Mean Corpuscular Hemoglobin 30.2 pg (27.0-31.0); Mean Corpuscular Volume 93.8 fl (78.0-98.0); Mean Platelet Volume 10.7 fL (7.4-10.4); Platelet Count 203 10x3/uL (130-400); RBC Distribution Width 12.5 % (11.5-14.5); Red Blood Cell (RBC) Count 4.37 mill/uL (4.20-5.40); White Blood Cell (WBC) Count 9.2 10x3/uL (4.8-10.8)
[2023-08-23 05:09] LABS: Troponin I Less than 0.010 ng/mL (< 0.028)
[2023-08-23 05:10] LABS: ALT (SGPT) 18 U/L (8-55); AST (SGOT) 15 U/L (5-34); Albumin 3.6 g/dL (3.5-5.0); Alkaline Phosphatase 86 U/L (40-110); Anion Gap 12 mmol/L (10-20); BUN (Urea Nitrogen) 15 mg/dL (9.8-20.1); Bilirubin, Total 0.7 mg/dL (0.2-1.2); Calc. Creatinine Clearance 135 mL/min (70-130); Calcium 8.2 mg/dL (7.8-10.44); Carbon Dioxide 27 mmol/L (22-29); Cardiac Risk 3.3 (Less than 4.5); Chloride 105 mmol/L (98-107); Cholesterol 154 mg/dl (< 200 Desired); Estimated GFR 96; Globulin 2.6 g/dL (2.4-3.5); Glucose 167 mg/dL (70-105); HDL Cholesterol 46 mg/dL (>60 Neg Risk); LDL Cholesterol, Calculated 101 mg/dL; Potassium 3.5 mmol/L (3.5-5.1); Protein, Total 6.2 g/dL (6.0-8.3); Sodium 140 mmol/L (136-145); Triglycerides 35 mg/dL (Less than 150)
[2023-08-23] MEDS: Famotidine 20 MG TAB PO SCH ×2 (08:19→20:21)
[2023-08-23] MEDS: Aspirin Chewable 81 MG TAB PO SCH (08:19)
[2023-08-23] MEDS: Ascorbic Acid 500 mg Chewable Tablet PO SCH (08:19)
[2023-08-23] MEDS: DULoxetine 60 MG CAP PO SCH (08:19)
[2023-08-23] MEDS ORDERED: Aspirin Chewable 81 MG TAB PO SCH (09:00)
[2023-08-23] MEDS ORDERED: Pantoprazole 40 MG VIAL IVP SCH (10:35)
[2023-08-23] MEDS ORDERED: Polyethylene Glycol 3350 17 GM Packet PO PRN (10:43)
[2023-08-23] MEDS ORDERED: Sodium Chloride 0.9% 1,000 ML IV SCH (10:45)
[2023-08-23] MEDS: Ketorolac Tromethamine 30 MG/ML VIAL IVP PRN (12:10)
[2023-08-23] MEDS ORDERED: Gabapentin 300 MG CAP PO PRN (16:25)
[2023-08-23] MEDS: Gabapentin 300 MG CAP PO PRN ×2 (17:26→20:21)
[2023-08-23] MEDS: traZODone HCl 50 MG TAB PO PRN (20:21)
[2023-08-23] MEDS ORDERED: Gabapentin 300 MG CAP PO SCH (21:00)
[2023-08-23] MEDS ORDERED: Atorvastatin Calcium 40 MG TAB PO SCH (21:00)
[2023-08-23] MEDS ORDERED: Nitroglycerin 0.4 MG TAB (25 Tab Bottle) SL PRN (23:00)
[2023-08-23] MEDS ORDERED: Lidocaine 2% Viscous Solution 10 ML, Aluminum & Magnesium Hydroxide 30 ML SSW SCH (23:15)
[2023-08-23 23:56] LABS: Troponin I Less than 0.010 ng/mL (< 0.028)
[2023-08-24] MEDS: DULoxetine 60 MG CAP PO SCH (09:41)
[2023-08-24] MEDS: Famotidine 20 MG TAB PO SCH (09:41)
[2023-08-24] MEDS: Aspirin Chewable 81 MG TAB PO SCH (09:41)
[2023-08-24] MEDS: Ketorolac Tromethamine 30 MG/ML VIAL IVP PRN (09:46)
[2023-08-24] MEDS: Ascorbic Acid 500 mg Chewable Tablet PO SCH (11:05)
[2023-08-24] MEDS ORDERED: fentaNYL 50 mcg/mL 1 mL Vial SLOW IVP SCH (11:30)
[2023-08-24 16:02] VITALS: BP 124/64; TEMP 97.9
== END 2023-08-24 19:36 | disposition home or self-care (01) | DRG 206 ==
LOC: ERS 16:11 → 2SW 16:45 → OBSVTOIN 08-24 14:03
PROVIDERS: ADMIT Student in an Organized Health Care Education/Training Program; ATTEND Nurse Practitioner Family
DX: M94.0 Chondrocostal junction syndrome [Tietze] (principal); K21.00 Gastro-esophageal reflux disease with esophagitis, without bleeding; K59.09 Other constipation; E66.9 Obesity, unspecified; K21.9 Gastro-esophageal reflux disease without esophagitis; D72.829 Elevated white blood cell count, unspecified; R73.9 Hyperglycemia, unspecified; R07.89 Other chest pain; Z90.710 Acquired absence of both cervix and uterus; Z90.49 Acquired absence of other specified parts of digestive tract; Z98.890 Other specified postprocedural states; Z88.5 Allergy status to narcotic agent; Z91.041 Radiographic dye allergy status; Z88.2 Allergy status to sulfonamides; Z88.0 Allergy status to penicillin; Z88.6 Allergy status to analgesic agent; Z79.899 Other long term (current) drug therapy; Z79.82 Long term (current) use of aspirin
CPT/HCPCS: 36415; 36416; 70450; 71275; 74177; 80053; 80061; 81001; 83036; 83605; 83690; 83880; 84484; 85025; 85610; 85730; 87040; 87804; 93005; 93010; 93306; 94760; 96375; 96376; C9113; G0378; J1200; J1885; J2930; J3010; J7050; Q9967; S0028

== ENCOUNTER 2024-04-09 08:50 | Outpatient (CLI) | payer BC | END 2024-04-09 08:51 | disposition home or self-care (01) | LOC: BICMAMMO 08:50 | PROVIDERS: ATTEND Family Medicine | DX: Z12.31 Encounter for screening mammogram for malignant neoplasm of breast (principal) | CPT/HCPCS: 77063; 77067 ==